=== PATIENT | female | born 1995 | race American Indian/Alaskan Native ===

== ENCOUNTER 2018-04-03 13:54 | Emergency (ER) | payer SELFPAY ==
[2018-04-03 14:11] VITALS: BP 117/77
[2018-04-03 14:35] LABS: HCG Qualitative,Urine Negative (Negative)
[2018-04-03] MEDS ORDERED: ULTRAM PO ONE (15:03)
[2018-04-03] MEDS ORDERED: MOTRIN PO ONE (15:03)
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
--- NOTE | 2018-04-03 16:41 | XRay Report ---
FINAL REPORT EXAM: XR FOREARM RT HISTORY: injury TECHNIQUE: Two views right radius and ulna. PRIORS: None currently available. FINDINGS: There is no acute fracture. There is no evidence for healing fracture. There is no acute dislocation. There is no cortical destruction to suggest osteomyelitis. There are no suspicious osseous lesions. There are no radiopaque foreign objects. IMPRESSION: No acute osseous findings.
--- NOTE | 2018-04-03 16:43 | XRay Report ---
FINAL REPORT EXAM: XR HAND 3+V RT HISTORY: injury TECHNIQUE: Three views right hand. PRIORS: None currently available. FINDINGS: There is no acute fracture. There is no evidence for healing fracture. There is no acute dislocation. Joints in anatomical position. No significant arthrosis. There is no cortical destruction to suggest osteomyelitis. There are no suspicious osseous lesions. There are no radiopaque foreign objects. IMPRESSION: No acute osseous findings.
== END 2018-04-03 16:48 | disposition home or self-care (01) ==
LOC: ED 13:54
DX: S60.221A Contusion of right hand, initial encounter (principal); Y04.0XXA Assault by unarmed brawl or fight, initial encounter; Y93.89 Activity, other specified; Y92.89 Other specified places as the place of occurrence of the external cause; Y99.8 Other external cause status
CPT/HCPCS: 81025; 99284